=== PATIENT | male | born 2000 | race Caucasian/White ===

== ENCOUNTER 2023-12-17 16:26 | Emergency (ER) | payer MEDICAID, OTHER ==
[~2023-12-17] VITALS: Ht 167.6 cm; Wt 61.4 kg
[2023-12-17 16:30] VITALS: TEMP 98.1
[2023-12-17 18:11] VITALS: BP 133/68; PULSE 81; RESP 16; O2SAT 99
[2023-12-17] MEDS ORDERED: POLY119P3 PO (18:15)
[2023-12-17] MEDS ORDERED: HYDR30CR3 TP (18:15)
== END 2023-12-17 18:56 | disposition home or self-care (01) ==
LOC: EMS 16:26
DX: K60.2 Anal fissure, unspecified (principal); K59.00 Constipation, unspecified; K62.5 Hemorrhage of anus and rectum
CPT/HCPCS: 99282; Z7502